=== PATIENT | female | born 2000 | race Caucasian/White ===

== ENCOUNTER 2024-08-10 11:15 | Emergency (ER) | payer BC, OTHER ==
[2024-08-10] MEDS: Metoclopramide 10 MG/2 ML SDV IVPUSH ONE (12:23)
[2024-08-10] MEDS: Sodium Chloride 0.9% 1,000 ML IV ONE (12:26)
[2024-08-10 12:33] LABS: BASOPHILS PERCENT AUTO 0.6 % (0.0-1.0); EOSINOPHILS PERCENT AUTO 0.3 % (0.0-6.0); HEMATOCRIT 40.8 % (37.0-47.0); HEMOGLOBIN 13.8 gm/dl (12.0-16.0); IMMATURE GRAN ABSOLUTE AUTO 0.02 K/mm3 (0.00-0.05); IMMATURE GRAN PERCENT AUTO 0.3 % (0.0-0.4); LYMPHOCYTES ABSOLUTE AUTO 1.3 K/mm3 (1.0-4.8); MEAN CORPUSCULAR HEMOGLOBIN 30.7 pg (28.0-32.0); MEAN CORPUSCULAR HGB CONC 33.8 g/dl (32.0-36.0); MEAN CORPUSCULAR VOLUME 90.9 fl (83.0-99.0); MEAN PLATELET VOLUME 10.4 fl (9.4-12.3); MONOCYTES ABSOLUTE AUTO 0.3 K/mm3 (0.0-0.8); MONOCYTES PERCENT AUTO 4.5 % (0.0-8.0); NEUTROPHILS ABSOLUTE AUTO 5.4 K/mm3 (1.8-7.7); NEUTROPHILS PERCENT AUTO 76.3 % (41.0-71.0); PLATELET COUNT,PLT 278 K/mm3 (150-400); RED BLOOD CELL COUNT 4.49 M/mm3 (4.10-5.30); WHITE BLOOD CELL COUNT,WBC 7.12 K/mm3 (3.9-11.3)
[2024-08-10 12:56] LABS: A/G RATIO 1.4 (1-2); ALANINE AMINOTRANSFERASE,ALT 21 U/L (14-59); ALBUMIN 4.6 g/dl (3.4-5.0); ALKALINE PHOSPHATASE 78 U/L (46-116); ANION GAP 15.8 (5-15); ASPARTATE AMNIOTRANSFERASE,AST 15 U/L (15-37); BILIRUBIN TOTAL 0.7 mg/dL (0.2-1.0); BLOOD UREA NITROGEN,BUN 10 mg/dL (7-18); BUN/CREATININE RATIO 11.1 (14-18); CALCIUM 9.8 mg/dL (8.5-10.1); CARBON DIOXIDE,CO2 26 mEq/L (21-32); CHLORIDE,CL 100 mEq/L (98-107); CREATININE 0.9 mg/dL (0.55-1.02); ESTIMATED GFR 90 mL/min (>60); GLUCOSE RANDOM 107 mg/dL (70-99); POTASSIUM,K 4.8 mEq/L (3.5-5.1); PROTEIN TOTAL,TP 7.9 g/dl (6.4-8.2); SODIUM,NA 137 mEq/L (136-145); TROPONIN I HIGH SENSITIVITY < 4 pg/mL (<=51)
== END 2024-08-10 13:50 | disposition home or self-care (01) ==
LOC: JD.ED 11:15
DX: R42 Dizziness and giddiness (principal); Z86.16 Personal history of COVID-19
CPT/HCPCS: 36415; 80053; 84484; 85025; 93005; 96361; 96374; 99284-25; J2765; J7030